=== PATIENT | male | born 1975 | race Caucasian/White ===

== ENCOUNTER 2019-02-27 16:24 | Emergency (ER) | payer MEDICAID ==
[~2019-02-27] VITALS: Ht 180.3 cm; Wt 122.5 kg
--- NOTE | 2019-02-27 16:26 | NUR ---
PT AMBULATED TO ER BED 04
[2019-02-27 16:30] VITALS: BP 150/95
[2019-02-27] MEDS ORDERED: NACL 0.9% 1,000 ML IV ONE ×2 (16:35→17:45)
[2019-02-27] MEDS ORDERED: ACETAMINOPHEN EXTRA STRENGTH 500 MG TAB PO ONE (16:35)
--- NOTE | 2019-02-27 17:05 | NUR ---
PT BIB SELF WITH C/O CHEST PAIN AND HIGH FEVER SINCE LAST TWO DAYS. PT TEM 105.7 . MADE AWARE. 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 MEDICATED MEDS TO PT AND STARTED COOLING MEASURE. PT STATES TO HAVE BEEN OUTSIDE WORKING IN [employer], EXPOSED TO [place] BITES. STATES TO HAVE CP , 6/10. INCREASES MORE WITH BREATHING. HX OF HTN, OFF FROM HIS MEDS FOR MORE THAN TWO YEARS. HR 118, BP 150/95.HAS SLIGH COUGH. NO VOMITING OR NAUSEA AT THIS TIME. TOOK THREE TAB OF TYELENOL AT HOME BEFORE COMING TO [facility], UNKNOWN DOSE. ER MD TO SEE PT. HX--BP MEDS-- OFF FROM BP MEDS SINCE LAST TWO YEARS NO KNOWN ALLERGIES
--- NOTE | 2019-02-27 17:22 | NUR ---
CHECKED ON PT, STATES LESS CP AT THIS TIME 11/20. IVF INFUSING WELL.
[2019-02-27] MEDS ORDERED: KETOROLAC 30 MG/ML VIAL IVP ONE (17:50)
--- NOTE | 2019-02-27 17:55 | NUR ---
PT TEM 102.00 , ORAL. RESTING COMFORTABLY IN HIS BED.
[2019-02-27 18:41] VITALS: BP 123/62
--- NOTE | 2019-02-27 18:41 | NUR ---
Patient discharged with v/s stable. Written and verbal after care instructions given and explained. Patient alert, oriented and verbalized understanding of instructions. Ambulatory with steady gait. All questions addressed prior to discharge. ID band removed. Patient advised to follow up with PMD. Rx of MOTRIN AND TAMIFLU 75 MG CAP given. Patient educated on indication of medication including possible reaction and side effects. Opportunity to ask questions provided and answered.
== END 2019-02-27 18:41 | disposition home or self-care (01) ==
LOC: MED 16:24
DX: R50.9 Fever, unspecified (principal); R07.89 Other chest pain; J34.89 Other specified disorders of nose and nasal sinuses; I10 Essential (primary) hypertension; F17.210 Nicotine dependence, cigarettes, uncomplicated; Z98.890 Other specified postprocedural states
CPT/HCPCS: 71045; 96374; 99283; J1885; J7030; Q0092

== ENCOUNTER 2023-10-11 22:42 | Emergency (ER) | payer MEDICAID, OTHER ==
[~2023-10-11] VITALS: Ht 190.5 cm; Wt 113.4 kg
[2023-10-11 22:55] VITALS: BP 171/100; PULSE 95; RESP 18; TEMP 97.9; O2SAT 98
[2023-10-12] MEDS: BACITRACIN OINT 500 UNITS/GM PKT TP ONE (00:07)
[2023-10-12] MEDS ORDERED: AMOX1TAB8 PO (01:25)
[2023-10-12 01:38] VITALS: O2SAT 98
[2023-10-12 01:52] VITALS: BP 166/100; PULSE 91; RESP 16
== END 2023-10-12 01:52 | disposition home or self-care (01) ==
LOC: MED 22:42
DX: S93.401A Sprain of unspecified ligament of right ankle, initial encounter (principal); S00.12XA Contusion of left eyelid and periocular area, initial encounter; S60.415A Abrasion of left ring finger, initial encounter; L08.9 Local infection of the skin and subcutaneous tissue, unspecified; R07.81 Pleurodynia; I10 Essential (primary) hypertension; Z98.890 Other specified postprocedural states; Z79.899 Other long term (current) drug therapy; Y04.0XXA Assault by unarmed brawl or fight, initial encounter; Y92.89 Other specified places as the place of occurrence of the external cause; Y93.89 Activity, other specified; Y99.8 Other external cause status
CPT/HCPCS: 71101; 73130; 73610; 90471; 90715; 99284; Q0092; 96372